=== PATIENT | female | born 1955 | race Caucasian/White ===

== ENCOUNTER 2018-01-08 22:18 | Emergency (ER) | payer OTHER ==
[~2018-01-08] VITALS: Ht 152.4 cm; Wt 72.5 kg
[2018-01-08 23:46] VITALS: BP 154/98
== END 2018-01-08 23:47 | disposition home or self-care (01) ==
LOC: EME 22:18 → RME 22:18
DX: S60.221A Contusion of right hand, initial encounter (principal); W23.1XXA Caught, crushed, jammed, or pinched between stationary objects, initial encounter
CPT/HCPCS: 73130; 99281; 99283

== ENCOUNTER → 2018-02-10 | Outpatient (CLI) | payer OTHER ==
[2018-02-10 15:27] LABS: CSF TUBE NUMBER TUBE #1
[2018-02-10 15:28] LABS: APPEARANCE CLOUDY/BLOODY; RED CELL COUNT 2975 /MM^3 (0-1); WHITE CELL COUNT 9 /MM^3 (0-5)
[2018-02-10 15:52] LABS: CSF EOSINOPHILS 0 % (0-25); MONONUCLEAR WBC'S 14 % (50-90); POLYNUCLEAR WBC'S 86 % (0-3)
[2018-02-10 15:53] LABS: APPEARANCE (RECHECK) ND; CSF TUBE NUMBER (RECHECK) ND; RED CELL COUNT (RECHECK) ND /MM^3 (0-1)
[2018-02-10 16:00] LABS: CSF PROTEIN 57 mg/dL (15-45); GLUCOSE, CSF 65 mg/dL (40-80)
== END | disposition home or self-care (01) ==
LOC: RAD 12:44
PROVIDERS: Psychiatry & Neurology Neurology
PROC: 009U3ZZ Drainage of Spinal Canal, Percutaneous Approach (ICD-10-PCS; principal; 2018-02-10)
DX: R20.2 Paresthesia of skin (principal)
CPT/HCPCS: 62270; 77003; 82040 90; 82042 90; 82784 90; 82945; 83873 90; 83916 90; 84157; 89051